=== PATIENT | female | born 1965 | race Caucasian/White ===

== ENCOUNTER 2019-04-29 08:38 | Outpatient (CLI) | payer BC, SELFPAY ==
--- NOTE | 2019-05-07 15:45 | SLEEP_ITS ---
Split Night Sleep Study. DATE OF STUDY: 04/29/2019 REASON FOR THE STUDY: Loud snoring, hypersomnolence. HISTORY: This patient is a 53-year-old female, 65 inches tall, weighing 250 pounds with a body mass index of 41.6. She has a history of very loud snoring that is loud enough that others complain about it. This thing has been going on for several years. She rarely awakens at night with heartburn, belching, or coughing. She does not awaken from sleep, short of breath. There is a family history with her sister being treated for sleep apnea. She indicates that she has taken medication for this, but she does not list which medicines. She occasionally has trouble sleeping with a cold. She does not gasp for breath at night. She does not have witnessed apneas reported to her by others. She frequently sweats excessively at night. She does not notice her heart pounding or beating irregularly at night. She frequently falls asleep during the day, frequently involuntarily, but never while driving. She occasionally has loss of muscle tone with strong emotion and occasionally has daytime difficulties due to excessive sleepiness. She never feels paralyzed on waking or falling asleep. She rarely has vivid dreamlike scenes upon awakening or falling asleep. She is never afraid to go to sleep. She denies nightmares. She rarely remembers her dreams and rarely has racing thoughts. She constantly feels sad and depressed, frequently anxious. She constantly has muscular tension. She rarely notices parts of her body jerking and she rarely kicks at night. She does not have crawly achy feelings in her legs and rarely has leg pain at night. She rarely has morning jaw pain. She does not grind her teeth during sleep. She frequently is bothered by pain during the day. She is not awakened by pain at night. She constantly wakes up feeling stiff in the morning occasionally with sore achy muscles, frequently with pain in the neck and spine. She has fatigue, memory problems, concentration difficulties, tension. She goes to bed at 10:00 p.m., falling asleep quickly, waking 1 to 2 times at night to go to the bathroom. She wakes in the morning at 04:30 a.m. Weekend schedule, she goes to bed between 10:00 p.m. and 12 midnight and wakes whenever she feels like it. So she does get recovery sleep on weekends. She does take naps. A short nap is not refreshing. She is drowsy in the morning for 1 hour or longer. She quit smoking a year ago. She drinks half pot of coffee per day. She drinks 3-4 alcoholic beverages when she goes out. MEDICAL COMORBIDITIES: Hypothyroidism, depression, arthritis, history of gastric bypass, so she cannot take NSAIDs. MEDICATIONS: No medications listed. DESCRIPTION OF THE STUDY: On the [place] Sleepiness Scale, her score is 11, elevated. This was conducted as a split night nocturnal polysomnogram using the [employer] multiple channel system including EOG, EEG, submental EMG, EKG, nasal and oral airflow using thermistors and nasal pressure sensors, chest and abdominal belts, body position data and pulse oximetry. The study was scored using [facility] guidelines. The duration of the 1st portion was 170.9 minutes. Sleep time was 139 minutes. Sleep efficiency was 81.3%. Sleep latency 19.2 minutes. There was no REM. She spent 12.8 minutes awake after sleep onset. Sleep architecture showed 12.6% stage 1 sleep, 87.4% stage 2 sleep, no stage 3 sleep and no stage REM. She was not supine at all during this portion. Sleep was fragmented with frequent shifts between wake stage I and stage II. The apnea-hypopnea index was 16.8, all obstructive events. She had 39 obstructive hypopneas in non-supine, non-REM. The lowest desaturation was 87%. She spent 0.4 minutes below 88%, which was insignificant
== END 2019-04-29 08:39 | disposition home or self-care (01) ==
LOC: ANHCSM 08:40
PROVIDERS: PCP Family Medicine; Visit Provider Physician Assistant
DX: G47.33 Obstructive sleep apnea (adult) (pediatric) (principal); G47.61 Periodic limb movement disorder
CPT/HCPCS: 95811

== ENCOUNTER 2020-01-30 14:23 | Emergency (ER) | payer BC, SELFPAY ==
[2020-01-30 14:33] VITALS: BP 149/102; PULSE 77; TEMP 35.9; O2SAT 98
--- NOTE | 2020-01-30 15:14 | ED.GENADULT ---
HPI - General Adult General Chief complaint: Urogenital-Female Stated complaint: discolored urine Time Seen by Provider: 01/30/20 14:57 Source: patient Mode of arrival: ambulatory Limitations: no limitations History of Present Illness HPI narrative: Patient is a 54-year-old female who presents to emergency department for evaluation of dark urine noticed over the weekend concern for urinary tract infection had mild discomfort in the abdomen over the weekend. Patient on arrival in no distress denying any pain has not negative anger symptoms Related Data Home Medications Medication Instructions Recorded Confirmed buspirone 10 mg tablet 10 mg PO BID 01/19/20 Allergies Allergy/AdvReac Type Severity Reaction Status Date / Time Sulfa (Sulfonamide Allergy Unknown Skin Verified 01/30/20 14:43 Antibiotics) Reaction erythromycin base AdvReac Intermediate NV Verified 01/30/20 14:43 Review of Systems Review of Systems: All systems reviewed & are unremarkable except as noted in HPI and below PMFSH Family History Family History Father Hypertension Acute myocardial infarction Mother Asthma, Onset Age: 50 Social History Social History Smoking status: Never smoker Alcohol intake: current Exam Narrative: Exam Narrative: GENERAL: Well-appearing, obese, and in no acute distress. HEAD: Normocephalic, atraumatic. EYES: PERRLA and EOMI. ENT: Nares clear, no rhinorrhea or epistaxis. Mucous membranes moist. CHEST: Clear to auscultation. No respiratory distress. No wheezes rales or rhonchi HEART: Regular rate and rhythm. No murmur heard. EXTREMITIES: Normal range of motion. No edema. SKIN: Warm, dry, no rash. NEURO: No focal deficits. Alert and oriented x3. Cranial nerves II through XII grossly intact PSYCH: Normal mood and affect. Course Course Emergency Course: Patient in the room in no distress no high risk changes in the blood work or imaging felt appropriate for outpatient reevaluation patient agrees to follow-up as directed provided with reasons to return Vital Signs Vital signs: Vital Signs Temperature 96.7 F L 01/30/20 14:33 Pulse Rate 77 01/30/20 14:33 Blood Pressure 149/102 H 01/30/20 14:33 Pulse Oximetry 98 01/30/20 14:33 Temperature 96.7 F L 01/30/20 14:33 Pulse Rate 77 01/30/20 14:33 Blood Pressure 149/102 H 01/30/20 14:33 Pulse Oximetry 98 01/30/20 14:33 Medical Decision Making MDM Narrative Medical decision making narrative: Patient in the room in no distress aware of case findings treatment plan diagnosis agreeing to follow-up as directed or to return if symptoms worsen or concerns is afebrile nontoxic-appearing no distress felt appropriate for outpatient reevaluation Vital Signs Vital Signs: Vital Signs Temperature 96.7 F L 01/30/20 14:33 Pulse Rate 77 01/30/20 14:33 Blood Pressure 149/102 H 01/30/20 14:33 Pulse Oximetry 98 01/30/20 14:33 Temperature 96.7 F L 01/30/20 14:33 Pulse Rate 77 01/30/20 14:33 Blood Pressure 149/102 H 01/30/20 14:33 Pulse Oximetry 98 01/30/20 14:33 Lab Data Result diagrams: 01/30/20 15:04 01/30/20 15:04 Labs: Lab Results 01/30/20 01/30/20 01/30/20 Range/Units 15:04 15:04 15:05 WBC 4.7 (4.5-10.0) K/mm3 RBC 4.62 (4.2-5.4) M/mm3 Hgb 14.8 (12.0-15.0) g/dL Hct 44.7 (37.0-47.0) % MCV 96.8 (80-100) fl MCH 32.0 (26-34) pg MCHC 33.1 (32-36) g/dl RDW 15.2 H (11.5-14.5) % Plt Count 332 (150-375) k/mm3 MPV 10.5 H (7.4-10.4) fl Immature Gran % (Auto) 0.9 H (0-0.5) % Neut % (Auto) 76.9 H (45.5-73.1) % Lymph % (Auto) 13.0 L (18.3-44.2) % [place] % (Auto) 7.5 (2.6-8.5) % Eos % (Auto) 1.3 (0-4.4) % Baso % (Auto) 0.4 (0.2-1.2) % Lymph # (Auto) 0.61 L (0.9-3.2) K/mm
[2020-01-30 15:37] LABS: Basophils Percent Auto 0.4 % (0.2-1.2); Eosinophils Absolute Auto 0.1 K/mm3 (0-0.3); Eosinophils Percent Auto 1.3 % (0-4.4); Hematocrit 44.7 % (37.0-47.0); Hemoglobin 14.8 g/dL (12.0-15.0); Immature Granulocyte Absolute 0.04 K/mm3 (0.00-0.031); Immature Granulocyte Percent A 0.9 % (0-0.5); Lymphocytes Absolute Auto 0.61 K/mm3 (0.9-3.2); Mean Corpuscular HGB Conc 33.1 g/dl (32-36); Mean Corpuscular Volume 96.8 fl (80-100); Mean Platelet Volume 10.5 fl (7.4-10.4); Monocytes Absolute Auto 0.4 K/mm3 (0.1-0.6); Monocytes Percent Auto 7.5 % (2.6-8.5); Neutrophils Absolute Auto 3.6 K/mm3 (1.3-6.7); Neutrophils Percent Auto 76.9 % (45.5-73.1); Platelet Count Result 332 k/mm3 (150-375); Red Blood Count 4.62 M/mm3 (4.2-5.4); Red Cell Distribution Width 15.2 % (11.5-14.5); White Blood Count 4.7 K/mm3 (4.5-10.0)
[2020-01-30 15:44] LABS: Add Urine Microscopic? YES; Appearance Urine Clear (Clear); Bacteria Urine Trace /hpf; Bilirubin Urine Negative (Negative); Blood Urine Negative (Negative); Color Urine Amber (Yellow); Glucose Urine UA Negative (Negative); Ketones Urine Negative (Negative); Leukocyte Esterase Ur Negative LEU/UL (Negative); Mucus Urine Rare /lpf; Nitrate Urine Negative (Negative); Protein Urine Negative (Negative); RBC Urine 0-2 /hpf (0-2); Specific Grav Ur 1.017 (1.001-1.035); Squamous Epithelial Cell Urine Occasional /hpf (Few); WBC Urine 0-3 /hpf
[2020-01-30 15:54] LABS: Anion Gap 8 mmol/L (8-16); Blood Urea Nitrogen 14 mg/dL (7-17); Calcium 9.4 mg/dL (8.4-10.2); Carbon Dioxide 29 mmol/L (22-30); Chloride 101 mmol/L (98-107); Estimated CRCL calculation 79 ml/min; Estimated Glomerular Filt Rate > 60; Glucose 117 mg/dL (65-105); Potassium 3.9 mmol/L (3.4-5.0); Sodium 138 mmol/L (137-145)
== END 2020-01-30 16:25 | disposition home or self-care (01) ==
PROVIDERS: Emergency Medicine Emergency Medical Services; Emergency Provider Emergency Medicine; PCP Family Medicine
DX: R82.998 Other abnormal findings in urine (principal)
CPT/HCPCS: 36415; 80048; 81001; 85025; 99283

== ENCOUNTER → 2020-02-03 07:18 | Outpatient (CLI) | payer BC, SELFPAY ==
--- NOTE | ~2020-02-03 | XR_ITS ---
XR ankle LT min 3V 02/03/2020 08:06 Indication: Left ankle pain Procedure: 4 views left ankle Comparison: No prior studies for comparison. Findings: There is anatomic alignment. Ankle mortise intact. No abnormality of the talar dome. There is a degenerative calcaneal enthesophyte at the plantar surface. No acute fracture or traumatic malal ignment. No foreign bodies. There is pes planus. Impression: 1: No acute bone or joint abnormality. Reviewed, dictated and finalized at location B. AL CYTOLOGIST Impression: 1: No acute bone or joint abnormality.
--- NOTE | ~2020-02-03 | XR_ITS ---
EXAMINATION: XR hand BI arthritis min 3V DATE: 02/03/2020 08:06 INDICATION: Pain in the joints of the hands, right worse than left. TECHNIQUE: 4 views of right hand and 4 views of left hand on a total of 7 radiographs were obtained. COMPARISON: None. FINDINGS: RIGHT HAND: There is radial subluxation of second and third distal phalanges with respect to the midd le phalanges. No fracture. There is mild osteoarthritis of triscaphe joint, severe osteoarthritis of first carpometacarpal joint, and mild osteoarthritis of first-third metacarpophalangeal joints. There is severe osteoarthritis of first interphalangeal joint, second and third proximal and distal interp halangeal joints, and fifth proximal interphalangeal joint. There is moderate osteoarthritis of fourt h distal interphalangeal joint and mild osteoarthritis of fourth proximal interphalangeal joint of fi fth distal interphalangeal joint. LEFT HAND: Bone alignment is normal. No fracture. There is mild osteoarthritis of triscaphe joint, se maria esther osteoarthritis of first carpometacarpal joint, moderate osteoarthritis of first metacarpophalang eal joint, and mild osteoarthritis of fifth metacarpophalangeal joint. There is severe osteoarthritis of first interphalangeal joint, second proximal and distal interphalangeal joints, third and fourth distal interphalangeal joints, and fifth proximal and distal interphalangeal joints. There is mild os teoarthritis of third and fourth proximal interphalangeal joints. IMPRESSION: 1. Polyarticular osteoarthritis. Reviewed, dictated and finalized at location A. YTICAL LAB ANALYST
== END ==
PROVIDERS: PCP Family Medicine; Visit Provider Family Medicine
DX: M25.579 Pain in unspecified ankle and joints of unspecified foot (principal); M19.041 Primary osteoarthritis, right hand; M19.042 Primary osteoarthritis, left hand
CPT/HCPCS: 73130; 73610

== ENCOUNTER → 2020-02-06 07:25 | Outpatient (CLI) | payer BC, SELFPAY ==
--- NOTE | ~2020-02-06 | US_ITS ---
EXAMINATION: US abdomen limited EXAM DATE: 02/06/2020 08:13 INDICATION: R74.8 - Abnormal levels of other serum enzymes . TECHNIQUE: Multiple grayscale and Doppler images of the abdomen right upper quadrant were obtained (b y a technologist who performed the scan) and subsequently reviewed. There is no prior study for ramírez morris. FINDINGS: The pancreatic head and body are normal in appearance. The pancreatic tail is not visualized. The l iver has normal echogenicity and contour. There are no focal liver lesions identified. There is no evidence of intrahepatic biliary duct dilation. Portal venous flow was seen in the hepatopedal, nor mal direction and has normal Doppler waveform. No right-sided hydronephrosis. Common bile duct measures 7 mm, which is mildly dilated. Gallbladder is contracted with wall echo sha brenda sign, Stone filled gallbladder. There is no evidence of gallbladder wall thickening or pericholec ystic fluid. Technologist performing exam reports patient did not demonstrate sonographic Andrade's si gn. Please note that this sign is less reliable in patients who have received pain medication. IMPRESSION: 1. Cholelithiasis. 2. Mild common bile duct dilation without intrahepatic biliary duct dilation. If patient has elevate d bilirubin level then consider MRCP to evaluate possibility of choledocholithiasis. Reviewed, dictated and finalized at location A. OFFICER IMPRESSION: 1. Cholelithiasis. 2. Mild common bile duct dilation without intrahepatic biliary duct dilation. If patient has elevated bilirubin level then consider MRCP to evaluate possibil ity of choledocholithiasis.
== END ==
PROVIDERS: PCP Family Medicine; Visit Provider Family Medicine
DX: R74.8 Abnormal levels of other serum enzymes (principal); K80.20 Calculus of gallbladder without cholecystitis without obstruction
CPT/HCPCS: 76705

== ENCOUNTER → 2020-02-18 09:15 | Outpatient (CLI) | payer BC, SELFPAY ==
--- NOTE | ~2020-02-18 | MR_ITS ---
EXAMINATION: MR MRCP wo/w con/w 3D wo ind DATE: 02/18/2020 10:50 INDICATION: Generalized abdominal pain. Jaundice. TECHNIQUE: Magnetic resonance imaging (MRI) of the abdomen was performed without and with 20 mL Multi Juliette intravenous contrast. Sequences included coronal T2-weighted FS FSE, coronal T2-weighted FSE, a xial T1-weighted LAVA, coronal FS FIESTA, axial dual-echo T1-weighted SPGR, coronal lava-FLEX, sagitt al T2-weighted FSE, axial T2-weighted FSE, and axial DWI. Thick-slab T2-weighted FSE images were obta ined for magnetic resonance cholangiopancreatography (MRCP). Maximum intensity projection 3-D reconst ructions of the volumetric data were created by the technologist. Postcontrast sequences included cor onal LAVA-flex and time course of axial T1-weighted LAVA. COMPARISON: Ultrasound abdomen 02/06/20 FINDINGS: ABDOMEN MRI: There is moderate intrahepatic biliary duct dilatation. There are gallstones in the cyst ic duct and gallbladder, which is normal in size. There is an 11 mm cyst in the spleen. The pancreas and right adrenal gland are normal. There is a 3.9 cm mass in left adrenal gland containing microscop ic fat, consistent with an adenoma. The kidneys are normal. There are no dilated loops of bowel. Ther e are no pathologically enlarged lymph nodes. There is no free intraperitoneal fluid. ABDOMEN MRCP: The proximal common duct is dilated. There is a 16 mm stone in the common duct at its j unction with the cystic duct. The distal common duct is normal in caliber. IMPRESSION: 1. Cholelithiasis and choledocholithiasis with moderate intrahepatic biliary duct dilatation. 2. 3.9 cm left adrenal adenoma. Reviewed, dictated and finalized at location A. IRATORY SUPPORT TECHNICIAN IMPRESSION: 1. Cholelithiasis and choledocholithiasis with moderate intrahepatic biliary du ct dilatation. 2. 3.9 cm left adrenal adenoma.
[2020-02-18 10:02] LABS: Estimated Glomerular Filt Rate > 60
== END ==
PROVIDERS: PCP Family Medicine; Visit Provider Surgery
DX: K80.50 Calculus of bile duct without cholangitis or cholecystitis without obstruction (principal); D35.02 Benign neoplasm of left adrenal gland
CPT/HCPCS: 74183; 76376; A9577

== ENCOUNTER 2020-03-02 13:10 | Outpatient (CLI) | payer BC, SELFPAY ==
--- NOTE | 2020-03-02 13:12 | ECG_ITS ---
Measurements Intervals [place] Rate: 59 P: 7 IA: 166 QRS: -43 QRSD: 122 T: 61 QT: 449 QTc: 446 Interpretive Statements SINUS BRADYCARDIA LEFT AXIS DEVIATION LEFT VENTRICULAR HYPERTROPHY AND ST-T CHANGE POOR R WAVE PROGRESSION, ANTERIOR LEADS MINIMAL Q WAVES- HIGH LATERAL LEADS BORDERLINE ECG Electronically Signed On 03-02-2020 13:45:12 RECENTERER by Giancarlo Marrufo D.O.
[2020-03-02 13:45] LABS: Basophils Percent Auto 0.6 % (0.2-1.2); Eosinophils Absolute Auto 0.2 K/mm3 (0-0.3); Eosinophils Percent Auto 3.1 % (0-4.4); Hematocrit 39.3 % (37.0-47.0); Hemoglobin 13.4 g/dL (12.0-15.0); Immature Granulocyte Percent A 1.6 % (0-0.5); Lymphocytes Percent Auto 15.7 % (18.3-44.2); Mean Corpuscular HGB Conc 34.1 g/dl (32-36); Mean Corpuscular Hemoglobin 32.7 pg (26-34); Mean Corpuscular Volume 95.9 fl (80-100); Mean Platelet Volume 10.7 fl (7.4-10.4); Monocytes Absolute Auto 0.5 K/mm3 (0.1-0.6); Monocytes Percent Auto 7.7 % (2.6-8.5); Neutrophils Absolute Auto 4.5 K/mm3 (1.3-6.7); Neutrophils Percent Auto 71.3 % (45.5-73.1); Platelet Count Result 391 k/mm3 (150-375); White Blood Count 6.4 K/mm3 (4.5-10.0)
[2020-03-02 14:20] LABS: Alanine Aminotransferase 339 U/L (4-35); Albumin Level 3.9 g/dL (3.5-5.1); Alkaline Phosphatase 1437 U/L (38-126); Amylase 59 U/L (30-110); Anion Gap 11 mmol/L (8-16); Aspartate Amino Transferase 321 U/L (14-36); Bilirubin Direct 5.5 mg/dL (0-0.3); Bilirubin,Total 9.6 mg/dL (0.2-1.3); Blood Urea Nitrogen 16 mg/dL (7-17); Calcium 9.6 mg/dL (8.4-10.2); Carbon Dioxide 28 mmol/L (22-30); Chloride 102 mmol/L (98-107); Estimated Glomerular Filt Rate > 60; Glucose 98 mg/dL (65-105); Lipase 28 U/L (23-300); Potassium 3.8 mmol/L (3.4-5.0); Sodium 141 mmol/L (137-145)
== END 2020-03-02 13:11 | disposition home or self-care (01) ==
PROVIDERS: PCP Family Medicine; Visit Provider Surgery
DX: Z01.818 Encounter for other preprocedural examination (principal); K81.1 Chronic cholecystitis; R94.31 Abnormal electrocardiogram [ECG] [EKG]
CPT/HCPCS: 36415; 80053; 82150; 82248; 83690; 85025; 86850; 86900; 86901; 93005

== ENCOUNTER 2020-03-05 00:48 | Outpatient (CLI) | payer BC, SELFPAY ==
[2020-03-05 18:38] LABS: SARS-CoV-2 RNA PCR Negative
== END 2020-03-05 00:49 | disposition home or self-care (01) ==
LOC: ANHCOVIDDT 00:48
PROVIDERS: Anesthesiology; PCP Family Medicine; Visit Provider Surgery
DX: Z01.812 Encounter for preprocedural laboratory examination (principal); Z20.822 Contact with and (suspected) exposure to COVID-19
CPT/HCPCS: C9803; U0003

== ENCOUNTER 2020-03-09 15:37 | Observation (INO) | payer BC, SELFPAY ==
[2020-03-01 12:54] VITALS: BMI 43.2
[2020-03-08] VITALS (12 sets, daily range): BP systolic 120–152; BP diastolic 54–89; PULSE 67–79; RESP 12–21; TEMP 36.1–37.3; O2SAT 92–100; BMI 41.4
--- NOTE | 2020-03-08 10:16 | SUR.PREOP ---
PT STATES LMP OVER 1 YEAR AGO DUE TO MENOPAUSE
[2020-03-08] MEDS: ACETAMINOPHEN 500 MG TABLET 1000 MG PO (10:28)
--- NOTE | 2020-03-08 10:57 | P.PNAN_ITS ---
Anes - Initial Pre Proc Eval Procedure: Operation Date: 03/08/20 12:00 Proposed Procedures p Open Cholecystectomy With Common Bile Duct Exploration, With T-Tube Cholangiogram - Zeus Villalta MD Date/Time: 03/08/20 10:57 Surgeon: Zeus Villalta MD Pre Op Diagnosis: Chronic Cholecystitis with Cholelithiasis Patient Data Age: 54 Gender: F Height: 5 ft 5 in Weight: 112.9 kg Last Vital Signs Temp 37.3 C 03/08/20 10:30 Pulse 73 03/08/20 10:30 Resp 20 03/08/20 10:30 BP 152/89 H 03/08/20 10:30 Pulse Ox 99 03/08/20 10:30 Allergies Allergy/AdvReac Type Severity Reaction Status Date / Time Sulfa (Sulfonamide Allergy Severe Swelling Verified 03/08/20 10:02 Antibiotics) erythromycin base AdvReac Intermediate Abdominal Verified 03/08/20 10:02 Pain Home Medications Medication Instructions Recorded Confirmed Type levothyroxine 150 mcg tablet 150 mcg PO DAILY #90 tablet 05/21/19 03/08/20 Rx cholecalciferol (vitamin D3) 1,250 1,250 mcg PO WEEKLY #14 tablet 08/07/19 03/08/20 Rx mcg (50,000 unit) tablet diclofenac sodium 1 % topical gel 2 gm TOPICAL QID #100 gm 08/11/19 03/08/20 Rx buspirone 10 mg tablet 10 mg PO BID 01/19/20 03/08/20 History lisinopril 10 1 tablet PO DAILY #90 tablet 01/19/20 03/08/20 Rx mg-hydrochlorothiazide 12.5 mg tablet venlafaxine 75 mg tablet 75 mg PO TID #90 tablet 01/19/20 03/08/20 Rx multivit with min-folic acid 1 tablet PO DAILY 03/01/20 03/08/20 History [Adult One Daily Multivitamin] Patient hx anesthesia problems: none Family hx anesthesia problems: none PMFSH Past Medical History Medical History (Updated 03/08/20 @ 10:58 by Maxime Chaudhari MD) CAD (coronary artery disease) Depression High cholesterol HTN (hypertension) RON (obstructive sleep apnea) Thyroid disease Surgical History Surgical History Gastric bypass status for obesity History of thyroid surgery Family History Family History Father Hypertension Acute myocardial infarction Heart attack Mother Asthma, Onset Age: 50 History of blood clots Social History Social History (Updated 03/08/20 @ 10:58 by Maxime Chaudhari MD) Smoking status: Former smoker Alcohol intake: current Alcohol use details: occassional Substance use: never Living arrangements: with family 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 Questions were solicited and answers provided to the satisfaction of the patient/fam
[2020-03-08] MEDS: LACTATED RINGERS 1,000 ML 30 ML IV CONT ×2 (11:02→17:12)
--- NOTE | 2020-03-08 12:07 | WPDHPUPDATE1 ---
History and Physical Update Update Date/Time: 03/08/20 12:07 History and Physical has been reviewed, including an updated exam of the patient. There are changes in the patient's condition. The patient had a MRCP that showed a CBD stone. An attempt was made by Dr. Balderrama at [facility] to get to her ampulla for an ercp and this was not able to be done because of her Gastric bypass surgery. So we now plan an open Cholecystectomy with a common bile duct exploration, removal of a CBD stone with placement of a T tube. Risks, benefits, and alternatives have been discussed and questions answered. Patient agrees to proceed with procedure.
--- NOTE | 2020-03-08 12:08 | SUR.PREOP ---
SPOKE TO DR SANTIZO. ANCEF 2GM OKAYED. GIVE PT TORADOL 15MG IV
[2020-03-08] MEDS: KETOROLAC 15 MG/ML VIAL (*BKC) IV PUSH (12:13)
[2020-03-08] MEDS: ceFAZolin 2 GM/D5W 50 ML 2 GM/50 ML BAG IVPB ×2 (12:22→21:38)
[2020-03-08] MEDS: ceFAZolin SODIUM 1 GM VIAL 2 GM IV PUSH (16:24)
--- NOTE | 2020-03-08 17:29 | PM.PROC ---
Procedure Note - Detailed Date of procedure: 03/08/20 Pre-op diagnosis: Chronic Cholecystitis with Cholelithiasis 1. Choledocholithiasis 2. Chronic cholecystitis with cholelithiasis Post-op diagnosis: other (1. Chronically scarred and inflamed gallbladder full of stones 2. Choledocholithiasis) Procedure performed: 1. Common duct exploration with placement of T-tube and T-tube cholangiogram 2. Open cholecystectomy Description of procedure: The patient was brought to the operating room and after induction of adequate general endotracheal anesthesia by David anesthesia, we carefully positioned the patient with the right arm tucked. The entire upper abdomen and lower chest were prepped with chlorhexidine. The patient received 3 g of Ancef preop. Time-out was performed and then we began the open procedure by making a long transverse subcostal incision 2 cm below the costal margin on the right. Incision was made and carried down to the anterior rectus sheath and then the anterior rectus sheath incised with Bovie cautery. Following this we carefully divided the rectus muscle overlying the posterior rectus sheath. Following this the posterior rectus sheath and peritoneum were tented up in the center of the incision and the peritoneum entered without difficulty. We then opened the peritoneum the length of the incision. Incision carried out into the lateral abdominal wall muscles only a small degree. We immediately encountered some omentum and the transverse colon. Careful inspection with retraction revealed that omentum and colon completely covered the gallbladder in its usual placed just under the right lobe of the liver. I then with careful retraction began meticulous dissection dissecting the omentum and colon off the gallbladder with both finger fracture method and blunt and sharp dissection until we dissected down the entire length of the gallbladder. It was very difficult to obtain a plane in this area but it appeared that we did. Several holes were made in the gallbladder especially on the posterior lateral side and stones begin coming out of this. These were gradually removed as they came out. We grasped the gallbladder in order to be able to continue dissecting and carefully with Kitner dissectors and the right angle forceps I dissected under direct vision down to what appeared to be the wide cystic duct/common bile duct junction. We could not easily see the cystic artery coming up on the gallbladder in this area but we found what appeared to be the anterior surface of the common bile duct and I aspirated this with a 22 gauge needle on a 10 cc syringe and did get some bile. Two stay sutures of 4-0 Vicryl were then placed on either side of this and a cut was made between them with an 11 blade knife. Initially we did not even get into any biliary duct or the gallbladder. I made this a little bit deeper and we could see a large stone in the area and were then able to sweep this up in out through the opening. It was 16 X 10 mm in size. It appeared that we were right on top of the wide cystic duct at this point. Therefore, we dissected out a little more mid medially and I placed another 4-0 Vicryl stay suture further over on what appeared to be the common duct. I then again aspirated and found some bile and so we opened what appeared to be the area of the common bile duct just medial to its junction with the cystic duct. Another large stone was found right at this area and it was removed. (15 X 11 mm) Several small ones and another 11 x 10 mm stone was extracted from this opening also. Through this opening then I could place a Mallika catheter, we used a #6 Mallika catheter with a balloon and this was able to be passed into the duodenum. I then blew up the balloon pulled it back until it hit the ampulla of Vater then let the balloon down mcc pulled it back the rest way X 3 and there were no further stones found distally in the common bile duct. Followin
[2020-03-08] MEDS: LACTATED RINGERS 1,000 ML 100 ML IV CONT (18:53)
--- NOTE | 2020-03-08 19:21 | ADMGEN ---
This patient, Jess Saez, was admitted to 2 Medical Room 250-01. Patient/family oriented to hospital policies and general routines including ID bracelet, bed and alarms, visiting hours, pain management, procedures, bathroom and other care routines, personal items, smoking policy, room service/diet, and visiting hours. Information on how to activate the Rapid Response Team has been discussed. Patient/Family are encouraged to report perceived risks to care and to ask questions if they do not understand what they are told or what they should do.
[2020-03-08] MEDS: MORPHINE SULFATE PCA (*CRX) 30 MG/30 ML SYR IV CONT (19:55)
[2020-03-08] MEDS: SENNA/DOCUSATE SODIUM TABLET 2 TAB PO (21:31)
[2020-03-08] MEDS: busPIRone HCL 10 MG TABLET PO (21:31)
[2020-03-09] VITALS (7 sets, daily range): BP systolic 144–163; BP diastolic 64–82; PULSE 73–80; RESP 16–21; TEMP 36.1–36.8; O2SAT 98–100
--- NOTE | ~2020-03-09 | XR_ITS ---
EXAMINATION: XR catheter cholangiogram DATE: 03/08/2020 17:05 INDICATION: Cholelithiasis. TECHNIQUE: 174 fluoroscopic images of the right upper quadrant were obtained during intraoperative ch olangiography performed by the surgeon. I was not present in the operating room. Fluoroscopy exposure time was 44 seconds. COMPARISON: MRCP 02/18/2020 FINDINGS: There is a T-tube in expected position. Contrast injection of the T-tube demonstrates opaci fication of the biliary tree and duodenum and collection of contrast in the gallbladder fossa. Initia l images demonstrate a drain in the bladder fossa. IMPRESSION: 1. T-tube in expected position with leakage of contrast into the gallbladder fossa. Reviewed, dictated and finalized at location A. I MIXER OPERATOR IMPRESSION: 1. T-tube in expected position with leakage of contrast into the gallbladder fo ssa.
[2020-03-09] MEDS: ACETAMINOPHEN 500 MG TABLET PO (04:06)
[2020-03-09] MEDS: LACTATED RINGERS 1,000 ML 100 ML IV CONT (05:26)
[2020-03-09] MEDS: ceFAZolin 2 GM/D5W 50 ML 2 GM/50 ML BAG IVPB ×2 (05:26→14:02)
[2020-03-09] MEDS: LEVOTHYROXINE SODIUM 150 MCG TABLET PO (05:32)
[2020-03-09 05:39] LABS: Hematocrit 33.1 % (37.0-47.0); Hemoglobin 10.7 g/dL (12.0-15.0); Mean Corpuscular HGB Conc 32.3 g/dl (32-36); Mean Corpuscular Hemoglobin 33.1 pg (26-34); Mean Corpuscular Volume 102.5 fl (80-100); Mean Platelet Volume 10.8 fl (7.4-10.4); Platelet Count Result 411 k/mm3 (150-375); Red Blood Count 3.23 M/mm3 (4.2-5.4); Red Cell Distribution Width 16.6 % (11.5-14.5); White Blood Count 14.7 K/mm3 (4.5-10.0)
[2020-03-09 05:57] LABS: Alanine Aminotransferase 142 U/L (4-35); Albumin Level 3.3 g/dL (3.5-5.1); Alkaline Phosphatase 1165 U/L (38-126); Anion Gap 7 mmol/L (8-16); Aspartate Amino Transferase 125 U/L (14-36); Bilirubin,Total 3.4 mg/dL (0.2-1.3); Blood Urea Nitrogen 17 mg/dL (7-17); Calcium 9.1 mg/dL (8.4-10.2); Carbon Dioxide 31 mmol/L (22-30); Chloride 99 mmol/L (98-107); Estimated CRCL calculation 78 ml/min; Estimated Glomerular Filt Rate > 60; Glucose 137 mg/dL (65-105); Potassium 3.9 mmol/L (3.4-5.0); Sodium 137 mmol/L (137-145)
--- NOTE | 2020-03-09 07:50 | WPDANESPN ---
Anes - Prog Note Post-Op Date/Time: 03/09/20 07:50 Cardiovascular status: normal Respiratory status: normal Airway patency: baseline Mental status: baseline Post-Op hydration status: normal Vital Signs: Last Vital Signs Temp 36.4 C L 03/09/20 06:00 Pulse 80 03/09/20 06:00 Resp 21 H 03/09/20 06:00 BP 147/76 H 03/09/20 06:00 Pulse Ox 100 03/09/20 06:00 Pain Score (VAS): 04/14 I/O: Intake & Output 03/08/20 03/08/20 03/09/20 15:59 23:59 07:59 Intake Total 50 250 1520 Output Total 5 970 Balance 50 245 550 Laboratory Tests 03/09/20 05:11 03/09/20 05:11 03/09/20 03/09/20 05:11 05:11 WBC 14.7 H RBC 3.23 L Hgb 10.7 L Hct 33.1 L MCV 102.5 H D MCH 33.1 MCHC 32.3 RDW 16.6 H Plt Count 411 H MPV 10.8 H Sodium 137 Potassium 3.9 Chloride 99 Carbon Dioxide 31 H Anion Gap 7 L BUN 17 Creatinine 0.90 Estim Creat Clear Calc 78 Estimated GFR > 60 Glucose 137 H Calcium 9.1 Total Bilirubin 3.4 H AST 125 H ALT 142 H Alkaline Phosphatase 1165 H Total Protein 7.0 Albumin 3.3 L Post-procedural complaints: none Patient Feedback: Patient satisfied with anesthetic care.
[2020-03-09] MEDS: busPIRone HCL 10 MG TABLET PO (08:31)
[2020-03-09] MEDS: hydroCHLOROthiazide 12.5 MG CAPSULE PO (08:31)
[2020-03-09] MEDS: lisinopriL 10 MG TABLET PO (08:31)
[2020-03-09] MEDS: ENOXAPARIN 40 MG/0.4 ML SYRINGE SUB-Q (08:32)
[2020-03-09] MEDS: HYDROcodone/acetaminophen (*CRX) 5-325 MG TABLET 1 TAB PO ×2 (09:59→19:50)
--- NOTE | 2020-03-09 10:44 | PM.PNGS ---
Progress Note: A&P Assessment and Plan (1) CCC (chronic calculous cholecystitis): Code(s): K80.10 - Calculus of gallbladder with chronic cholecystitis without obstruction Status: Acute Assessment and Plan: POD#1 open cholecystectomy with CBD exploration and t-tube placement with IOC through t-tube. Patient doing well and pain is well-controlled. Tolerating activity and her diet. May change post-op dressing tomorrow prior to discharge. Will advance to full liquids for lunch. I ordered a senior software quality engineer consult for education on a low fat diet, which she will be discharged home on. Continue to monitor ENRIQUE drain and t-tube output. Encouraged increased activity and sitting in the chair with meals, ambulating the halls. Encouraged IS use. Pathology pending. Patient may be able to discharge tomorrow if she continues to improve. (2) Common bile duct stone: Code(s): K80.50 - Calculus of bile duct without cholangitis or cholecystitis without obstruction Status: Acute (3) Jaundice: Code(s): R17 - Unspecified jaundice Status: Acute Assessment and Plan: LFTs trending down with total bilirubin down to 3.4 today. (4) Essential (primary) hypertension: Code(s): I10 - Essential (primary) hypertension Status: Acute Assessment and Plan: BP stable. Continue home medications. (5) Morbid obesity: Code(s): E66.01 - Morbid (severe) obesity due to excess calories Status: Acute Additional Plan Discussed the patient's plan of care with Dr. Villalta. Subjective Subjective Date/Time Seen: 03/09/20 08:44 Post Op day: 1 (Open cholecystectomy with CBD exploration and t-tube placement with cholangiogram through t-tube) Patient reports: no new complaints Interval history: Patient seen this morning. Had clear liquids for breakfast and is tolerating this well. She denies any nausea, vomiting, or bloating. Denies flatus, but is belching a lot. Reports her abdominal pain is well controlled and has not required any narcotics. Her main complaint of pain is her low back pain, chronic pain, from sleeping in the hospital bed. She had a headache earlier this morning that has subsided. No other complaints at this time. Review of Systems Review of Systems: All systems reviewed & are unremarkable except as noted in HPI and below Constitutional: Constitutional: Reports as per HPI, Reports no additional constitutional complaints, Denies chills and Denies fever(s) Cardiovascular: Cardiovascular: Reports no additional cardiovascular complaints, Denies chest pain, Denies leg edema and Denies dyspnea Respiratory: Respiratory: Reports no additional respiratory complaints, Denies cough and Denies dyspnea Gastrointestinal: Gastrointestinal: Reports as per HPI and Reports no additional gastrointestinal complaints Neurologic: Reports system reviewed and no additional complaints, except as documented, Denies Abnormal speech present, Denies confusion and Denies focal weakness Psychiatric: Psychiatric: Denies confusion Exam Const: General: comfortable, no acute distress, alert and awake Orientation/consciousness: patient oriented x3 Resp: Effort & Inspection: normal respiratory effort Auscultation: clear to auscultation bilaterally Cardio: Rate: regular rate Rhythm: regular rhythm GI: Inspection: non-distended, incision (RUQ abominal dressing clean and dry) and obesity GI Palp: Yes Soft to palpation, Yes Tenderness to palpation present (GI) (incisional), No Guarding due to palpation present (GI) and No Rebound tenderness present Auscultation: normal bowel sounds Rectal Exam: deferred Other: T-tube with bilious output. Right-sided ENRIQUE drain with serosanguineous output. Skin: General skin exam: normal color Rashes: no rashes Neuro: General: patient oriented x3, moves all extremities, no focal motor deficits and No confusion Cranial nerves: Yes CN's II-XII intact bilaterally Speech: normal speech and No Abn
--- NOTE | 2020-03-09 11:05 | PCDIET ---
Nutrition Consult for low fat diet. See Nutritional Teaching Intervention. Thank you for the consult.
[2020-03-09] MEDS: SENNA/DOCUSATE SODIUM TABLET 2 TAB PO (19:51)
[2020-03-10 04:00] VITALS: BP 163/79; PULSE 83; RESP 20; TEMP 36.2; O2SAT 95
[2020-03-10] MEDS: LEVOTHYROXINE SODIUM 150 MCG TABLET PO (06:04)
[2020-03-10 06:18] LABS: Basophils Percent Auto 0.3 % (0.2-1.2); Eosinophils Absolute Auto 0.1 K/mm3 (0-0.3); Eosinophils Percent Auto 0.7 % (0-4.4); Hematocrit 33.3 % (37.0-47.0); Hemoglobin 10.9 g/dL (12.0-15.0); Immature Granulocyte Absolute 0.16 K/mm3 (0.00-0.031); Immature Granulocyte Percent A 1.2 % (0-0.5); Lymphocytes Absolute Auto 1.93 K/mm3 (0.9-3.2); Lymphocytes Percent Auto 14.3 % (18.3-44.2); Mean Corpuscular HGB Conc 32.7 g/dl (32-36); Mean Corpuscular Hemoglobin 33.2 pg (26-34); Mean Corpuscular Volume 101.5 fl (80-100); Mean Platelet Volume 10.9 fl (7.4-10.4); Monocytes Percent Auto 7.5 % (2.6-8.5); Neutrophils Absolute Auto 10.2 K/mm3 (1.3-6.7); Platelet Count Result 490 k/mm3 (150-375); Red Blood Count 3.28 M/mm3 (4.2-5.4); Red Cell Distribution Width 15.9 % (11.5-14.5); White Blood Count 13.5 K/mm3 (4.5-10.0)
[2020-03-10 06:29] LABS: Alanine Aminotransferase 91 U/L (4-35); Albumin Level 3.6 g/dL (3.5-5.1); Alkaline Phosphatase 961 U/L (38-126); Anion Gap 4 mmol/L (8-16); Aspartate Amino Transferase 63 U/L (14-36); Bilirubin,Total 2.6 mg/dL (0.2-1.3); Blood Urea Nitrogen 12 mg/dL (7-17); Calcium 9.3 mg/dL (8.4-10.2); Carbon Dioxide 37 mmol/L (22-30); Chloride 97 mmol/L (98-107); Estimated CRCL calculation 98 ml/min; Estimated Glomerular Filt Rate > 60; Glucose 109 mg/dL (65-105); Potassium 3.7 mmol/L (3.4-5.0); Sodium 138 mmol/L (137-145)
[2020-03-10] MEDS: lisinopriL 10 MG TABLET PO (08:04)
[2020-03-10] MEDS: busPIRone HCL 10 MG TABLET PO (08:04)
[2020-03-10] MEDS: hydroCHLOROthiazide 12.5 MG CAPSULE PO (08:05)
[2020-03-10] MEDS: ENOXAPARIN 40 MG/0.4 ML SYRINGE SUB-Q (08:05)
[2020-03-10 08:12] VITALS: RESP 20; O2SAT 96
--- NOTE | 2020-03-10 08:52 | PM.DS ---
DS: Admitting Diagnosis Admitting Diagnosis Admitting Diagnosis: Chronic calculous cholecystitis Choledocholithiasis Transaminitis, Jaundice Morbid obesity s/p Gastric Bypass GERD Hypertension DS: Discharge Diagnosis Discharge Diagnosis (1) CCC (chronic calculous cholecystitis): Code(s): K80.10 - Calculus of gallbladder with chronic cholecystitis without obstruction Status: Acute Assessment and Plan: 03/08/19 Open cholecystectomy with CBD exploration and placement of T-tube with cholangiogram through T-tube by Dr. Villalta (2) Common bile duct stone: Code(s): K80.50 - Calculus of bile duct without cholangitis or cholecystitis without obstruction Status: Acute DS: Summary Hospital Course Reason for hospitalization: Ms Saez is a 54 year old female that was found to have bilirubinemia on labs done in the ER in January 2020 on evaluation of dark urine and abdominal pain. Her total bilirubin was 2.7 and had then followed up with her PCP. An abdominal ultrasound was done on 02/06/2020 that showed cholelithiasis, mild common bile duct dilation without intrahepatic biliary duct dilation. The patient was then referred to our service and was seen by Dr. Villalta in the office on 02/11/20 at the request of Dr Calvert. After seeing Dr. Villalta, she was tentatively planned for a laparoscopic cholecystectomy, possible open, with IOC, and also ordered to get a pre-operative MRCP due to the previously mentioned issues. The MRCP showed cholelithiasis and choledocholithiasis with moderate intrahepatic biliary duct dilatation. Therefore, she was referred to Dr. Balderrama at [facility] who attempted an ERCP on 02/25/20 but was unable to reach the major papilla due to her previous gastric bypass. The decision was then made to proceed with open cholecystectomy with CBD exploration on 03/08/19. Patient had gastric bypass about 12 years ago at [facility]. Hospital Course: The patient was admitted following the above mentioned surgery on 03/08/19. Intra-operative findings showed a chronically scarred and inflamed gallbladder with cholelithiasis and choledocholithiasis. During surgery, the patient had a significant amount of scarring and adhesions around the gallbladder. A T-tube was placed and IOC done through the t-tube which showed no filling defects or CBD stones. She tolerated surgery well and was transferred to the medical floor. Following surgery, labs were monitored, she showed a slight, expected, decrease in her hemoglobin initially after surgery. H/H was repeated today and remained stable. LFTs have trended down since surgery with total bilirubin today at 2.6. Jaundice improving. Her other labs were unremarkable. Her vital signs have remained stable and she was restarted on her home medications post-operatively. T-tube and ENRIQUE drain were monitored following surgery with no issues. She will be sent home with these two drains and I educated her today on the care at home. Dr. Villalta also looked at her incision today and reportedly had no concerns. He then placed a dressing and she will leave this in place until seen in the office next week unless there is drainage. No other acute issues during her hospitalization. I discussed discharge instructions with the patient at length and answered all her questions. I will give a dose of milk of magnesia this morning to help her move her bowels postoperatively. After discussing the case with Dr. Villalta, the patient is stable for discharge. Status at Discharge Functional status at discharge: independent ambulation Overall status at discharge: patient is progressing back to baseline Time Spent with Patient Time attestation: Total time spent providing and/or coordinating discharge services: Time spent: Greater than 30 minutes Exam Const: General: comfortable, no acute distress, alert and awake Orientation/consciousness: patient oriented x3 Resp: Effort & Inspection: normal respiratory effort Auscultat
[2020-03-10] MEDS: MAGNESIUM HYDROXIDE SUSP 30 ML UDC PO (10:13)
== END 2020-03-10 14:40 | disposition home or self-care (01) ==
LOC: ANHSURGERY 15:53 → ANH2MED 15:53
PROVIDERS: Admitting Provider Surgery; PCP Family Medicine; Visit Provider Surgery
PROC: (CPT 47610; principal; 2020-03-08 12:00)
DX: K80.62 Calculus of gallbladder and bile duct with acute cholecystitis without obstruction (principal); K80.00 Calculus of gallbladder with acute cholecystitis without obstruction; Z98.84 Bariatric surgery status; E66.01 Morbid (severe) obesity due to excess calories; R17 Unspecified jaundice; G47.33 Obstructive sleep apnea (adult) (pediatric); I25.10 Atherosclerotic heart disease of native coronary artery without angina pectoris; I10 Essential (primary) hypertension; Z87.891 Personal history of nicotine dependence; Z68.41 Body mass index [BMI] 40.0-44.9, adult
CPT/HCPCS: 47610; 36415; 47531; 80048; 80053; 80076; 82150; 82248; 83690; 85025; 85027; 86850; 86900; 86901; 88304; 93005; A9270; C1713; C9803; G0378; J0330; J0690; J1100; J1170; J1650; J1885; J2250; J2270; J2370; J2405; J2704; J3010; J7030; J7120; Q9966; U0003

== ENCOUNTER 2020-03-19 17:07 | Emergency (ER) | payer BC, SELFPAY ==
[2020-03-19] VITALS (22 sets, daily range): BP systolic 84–143; BP diastolic 51–90; PULSE 85–90; RESP 16–18; TEMP 36.4; O2SAT 96–100
--- NOTE | ~2020-03-19 | CT_ITS ---
EXAMINATION: CTA chest PE abdomen pel DATE: 03/19/2020 19:51 INDICATION: Right upper back pain post cholecystectomy TECHNIQUE: Computed tomography (CT) pulmonary angiogram of the chest was performed with 100 mL Omnipa que-350 intravenous contrast. Additional 3D reconstructions utilizing coronal maximum intensity proje ction (MIP) were performed. CT of the abdomen and pelvis was performed with intravenous contrast util izing the same contrast bolus following a short delay. Automated exposure control and iterative recon struction technique were employed. The dose-length product was 2017.63 mGy-cm. COMPARISON: None FINDINGS: Chest: Excellent contrast opacification of the pulmonary arteries. There is moderate streak artifact from de nse contrast in the superior vena cava and right atrium. Mild scattered respiratory motion artifact. Together this mildly decreases sensitivity in some of the smaller subsegmental pulmonary arteries. No pulmonary embolism identified. Lung volumes are small with atelectasis most prominent on the diaphra gm in the lingula and right middle lobe and to lesser degree in the dependent lower lobes. No pneumon ia, pulmonary edema, pleural effusion or pneumothorax. Heart size is normal. No pericardial effusion. Atherosclerotic coronary artery calcification. Thoracic aorta is normal in caliber with no dissectio n. No pathologically enlarged thoracic lymphadenopathy. Lower thoracic levoscoliosis with mild spondy losis. Abdomen/pelvis: Stopper changes of prior gastric bypass procedure. Additional postoperative change of a more recent c holecystectomy with surgical drain extending from the gallbladder fossa to the right lower quadrant w ith small amount of surrounding inflammatory stranding and minimal free fluid. There is also a T-tube drain expected position extending along the common bile duct and draining to the anteromedial right upper quadrant. Liver is normal with no intrahepatic biliary ductal dilation. There is likely reactiv e mild edematous wall thickening at the adjacent hepatic flexure of the colon. 4.1 cm low-attenuation left adrenal adenoma. There are some fatty infiltration of the pancreas which is otherwise normal. S pleen, right adrenal gland and bilateral kidneys are normal. Normal appendix. No bowel obstruction. B ladder, uterus and bilateral adnexa are unremarkable. Aside from the minimal amount of fluid along th e surgical drain there is no other evident free intraperineal gas or fluid. No abscess. No pathologic ally enlarged abdominal or pelvic lymphadenopathy. Mild lumbar spondylosis. IMPRESSION: 1. Moderate bibasilar atelectasis. No pulmonary embolism or other acute cardiopulmonary disease. 2. Postoperative changes of recent cholecystectomy with T-tube drain and second surgical drain at the gallbladder fossa. No abscess or discrete biloma. 3. Mild likely reactive edematous wall thickening at the adjacent hepatic flexure of the colon. Reviewed, dictated and finalized at location A. EWATER ANALYST LAB ANALYST IMPRESSION: 1. Moderate bibasilar atelectasis. No pulmonary embolism or other acute cardiop ulmonary disease. 2. Postoperative changes of recent cholecystectomy with T-tube drain and second surgical drain at the gallbladder fossa. No abscess or discrete biloma. 3. Mild likely reactive edematous wall thickening at the adjacent hepatic flexu re of the colon.
--- NOTE | ~2020-03-19 | XR_ITS ---
EXAMINATION: XR chest 1V portable DATE: 03/19/2020 18:54 INDICATION: Choking breathing. Abdominal pain post surgery. TECHNIQUE: frontal view of the chest was obtained. COMPARISON: None FINDINGS: Airspace opacities at the right lung base which partially silhouettes the elevated right hemidiaphrag m. Minimal streaky atelectasis at the lingula along side a small left paracardial fat pad. No pulmona ry edema, pleural effusion or pneumothorax. The cardiomediastinal silhouette is within normal limits for AP technique. IMPRESSION: 1. Opacities at the lung bases, right greater than left which could represent atelectasis and/or pneu monia. Reviewed, dictated and finalized at location A. ER TRIMMER OPERATOR IMPRESSION: 1. Opacities at the lung bases, right greater than left which could represent a telectasis and/or pneumonia.
--- NOTE | 2020-03-19 17:51 | PC.NURSE ---
sitting on stretcher. family member in room. SL inserted. labs drawn and sent. on BP and O2 monitors. call light in reach. waiting for further orders from provider. patient updated.
[2020-03-19 17:53] LABS: Basophils Absolute Auto 0.1 K/mm3 (0.0-0.1); Basophils Percent Auto 0.4 % (0.2-1.2); Eosinophils Absolute Auto 0.1 K/mm3 (0-0.3); Hematocrit 34.4 % (37.0-47.0); Hemoglobin 11.6 g/dL (12.0-15.0); Immature Granulocyte Percent A 0.8 % (0-0.5); Lymphocytes Absolute Auto 1.49 K/mm3 (0.9-3.2); Lymphocytes Percent Auto 11.4 % (18.3-44.2); Mean Corpuscular HGB Conc 33.7 g/dl (32-36); Mean Corpuscular Hemoglobin 33.8 pg (26-34); Mean Corpuscular Volume 100.3 fl (80-100); Monocytes Percent Auto 7.3 % (2.6-8.5); Neutrophils Absolute Auto 10.3 K/mm3 (1.3-6.7); Neutrophils Percent Auto 79.1 % (45.5-73.1); Platelet Count Result 608 k/mm3 (150-375); Red Blood Count 3.43 M/mm3 (4.2-5.4); Red Cell Distribution Width 15.6 % (11.5-14.5)
[2020-03-19 18:01] LABS: INR 0.9
[2020-03-19 18:02] LABS: Partial Thromboplastin Time 36.5 SECONDS (22.3-36.8)
[2020-03-19 18:05] LABS: Alanine Aminotransferase 67 U/L (4-35); Albumin Level 4.3 g/dL (3.5-5.1); Alkaline Phosphatase 394 U/L (38-126); Anion Gap 6 mmol/L (8-16); Aspartate Amino Transferase 42 U/L (14-36); Bilirubin,Total 1.6 mg/dL (0.2-1.3); Blood Urea Nitrogen 44 mg/dL (7-17); Calcium 9.7 mg/dL (8.4-10.2); Carbon Dioxide 26 mmol/L (22-30); Chloride 104 mmol/L (98-107); Estimated CRCL calculation 58 ml/min; Estimated Glomerular Filt Rate 47; Glucose 120 mg/dL (65-105); Lipase 91 U/L (23-300); Potassium 4.6 mmol/L (3.4-5.0); Sodium 136 mmol/L (137-145)
--- NOTE | 2020-03-19 18:11 | ED.ABDPAIN ---
HPI - Abdominal Pain General Chief Complaint: Abdominal Pain Stated Complaint: RUQ ABD/SIDE PAIN, HX OPEN TIKI Time Seen by Provider: 03/19/20 17:52 Source: patient Mode of arrival: ambulatory Limitations: no limitations History of Present Illness HPI narrative: This patient is 54 year old female who presents for evaluation right abdominal pain and right back pain s/p open cholecystectomy with CBD exploration 03/08/20. She reports she was evaluated by Dr. Villalta on 03/17/20. She states during that vision one of her drains was clamped. She reports since that has occurred, she has developed worsening pain to right upper quadrant and right mid to upper back. She reports she is having difficulty taking a full breath and using the incentive spirometer .She has having to take pain medication for the first time today. She still has one drain in place that seems to be draining more. She also reports the color of fluid is changing. She reports the color has changed from blood to dark green. She denies nausea, vomiting, fever or chills. Related Data Home Medications Medication Instructions Recorded Confirmed buspirone 10 mg tablet 10 mg PO BID 01/19/20 03/17/20 Adult One Daily Multivitamin 1 tablet PO DAILY 03/01/20 03/17/20 Allergies Allergy/AdvReac Type Severity Reaction Status Date / Time Sulfa (Sulfonamide Allergy Severe Swelling Verified 03/17/20 09:15 Antibiotics) erythromycin base AdvReac Intermediate Abdominal Verified 03/17/20 09:15 Pain Review of Systems Review of Systems: All systems reviewed & are unremarkable except as noted in HPI and below Constitutional: Constitutional: Denies chills and Denies fever(s) Cardiovascular: Cardiovascular: Denies chest pain Respiratory: Respiratory: Denies cough and Denies dyspnea Gastrointestinal: Gastrointestinal: Reports abdominal pain, Denies diarrhea, Denies nausea and Denies vomiting Musculoskeletal: Musculoskeletal: Reports back pain [facility] Past Medical History Medical History CAD (coronary artery disease) Depression High cholesterol HTN (hypertension) RON (obstructive sleep apnea) Thyroid disease Surgical History Surgical History Gastric bypass status for obesity History of thyroid surgery Hx laparoscopic cholecystectomy Family History Family History Father Hypertension Acute myocardial infarction Heart attack Mother Asthma, Onset Age: 50 History of blood clots Social History Social History Alcohol intake: never Substance use: never Substance use type: does not use 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 Gender identity (if verbalized by the patient): Female Spiritual care concerns: No Exam Const: General: no acute distress and alert Orientation/consciousness: patient oriented x3 HENMT: Head: normocephalic and atraumatic Face and sinus: face symmetric Throat: posterior oropharynx normal, tonsils normal and uvula midline Eyes: Pupils: Equal, round and reactive pupils present EOM: EOMs intact bilaterally Chest: Chest palpation & inspection: normal inspection of the chest Resp: Effort & Inspection: normal respiratory effort and no retractions Auscultation: clear to auscultation bilaterally Cardio: Rate: regular rate Rhythm: regular rhythm Heart sounds: no murmurs GI: Inspection: distended GI Palp: Yes Soft to palpation, No Tenderness to palpation present (GI) and No Guarding due to palpation present (GI) Auscultation: normal bowel sounds Other: she has [address], one attach to surgical bulb with dark green fluid , and large bag with very little fluid Back/Spine/Pelvis: Back: no CVA tenderness Skin: General skin exam: normal color Rashe
[2020-03-19] MEDS: SODIUM CHLORIDE 0.9% IV 1,000 ML 999 ML IV CONT (18:35)
--- NOTE | 2020-03-19 19:07 | PC.NURSE ---
has IVF going. resting on stretcher. family member in room. waiting for all tests to be resulted. on BP and O2 monitors. call light in reach. denies needs at this time.
--- NOTE | 2020-03-19 19:30 | PC.NURSE ---
patient in CT
[2020-03-19 21:33] LABS: Add Urine Microscopic? NO; Appearance Urine Clear (Clear); Bilirubin Urine Negative (Negative); Blood Urine Negative (Negative); Color Urine Yellow (Yellow); Glucose Urine UA Negative (Negative); Ketones Urine Negative (Negative); Leukocyte Esterase Ur Negative LEU/UL (Negative); Nitrate Urine Negative (Negative); Protein Urine Negative (Negative); Urobilinogen Urine Negative mg/dL (<2.0)
[2020-03-19 21:51] LABS: Specific Grav Ur 1.031 (1.001-1.035)
== END 2020-03-19 21:16 | disposition home or self-care (01) ==
PROVIDERS: Emergency Medicine; Emergency Provider General Practice; PCP Family Medicine
DX: G89.18 Other acute postprocedural pain (principal); R10.11 Right upper quadrant pain; E86.0 Dehydration; R74.01 Elevation of levels of liver transaminase levels; I25.10 Atherosclerotic heart disease of native coronary artery without angina pectoris; F32.9 Major depressive disorder, single episode, unspecified; I10 Essential (primary) hypertension; G47.33 Obstructive sleep apnea (adult) (pediatric); E07.9 Disorder of thyroid, unspecified; E78.00 Pure hypercholesterolemia, unspecified; Z98.84 Bariatric surgery status; R91.8 Other nonspecific abnormal finding of lung field
CPT/HCPCS: 36415; 71045; 71275; 74177; 80053; 81003; 83690; 85025; 85610; 85730; 96360; 99284; J7030; Q9967

== ENCOUNTER 2020-03-22 09:20 | Outpatient (CLI) | payer BC, SELFPAY ==
--- NOTE | ~2020-03-22 | XR_ITS ---
EXAMINATION: XR catheter cholangiogram DATE: 03/22/2020 10:18 INDICATION: Encounter for surgery aftercare following cholecystectomy. TECHNIQUE: A time-out was performed to verify the patient's name, date of , and procedure to b e performed. Bureau Chief fluoroscopic images were recorded. Initially the drainage catheter was clamped and sterilely prepped and a 21-gauge needle advanced into first the drainage catheter which was filled w ith yellowish bile. 20 mL of Omnipaque-240 contrast was injected and multiple fluoroscopic images obt ained. The catheter was clamped and subsequently the T-tube biliary drain was sterilely prepped and a ccessed with a 21-gauge needle. An additional 20 mL of Omnipaque 240 contrast was injected into the b iliary drain and additional fluoroscopic images obtained. There were no immediate complications. Fluo roscopy exposure time was 0.6 minutes. The total number of images was 27. FINDINGS: Initial contrast injection demonstrate a small fistulous tract communicating with the common bile daisy t which opacified with contrast which . Normal with no intraluminal filling defects to suggest choled ocholithiasis or stricture. There is prompt emptying into the duodenum. Small amount of contrast trac ked alongside the drainage catheter which to the skin surface with no evident biloma. A subsequent in jection again demonstrated retrograde filling of the normal-appearing biliary tree and common bile du ct with no filling defects or strictures. Again seen was a small amount of contrast indicating betwee n the common bile duct and the surgical drain. No extraluminal collection of contrast to suggest bilo ma. IMPRESSION: 1. T-tube biliary drain within a normal appearing common bile duct and biliary tree with no evident s tones or stricture. 2. Small common bile duct leak which tracks to the tip of the gallbladder drain which is at the gallb ladder fossa without discrete biloma. Reviewed, dictated and finalized at location A. AU DIRECTOR IMPRESSION: 1. T-tube biliary drain within a normal appearing common bile duct and biliary tree with no evident stones or stricture. 2. Small common bile duct leak which tracks to the tip of the gallbladder drain which is at the gallbladder fossa without discrete biloma.
== END 2020-03-22 09:21 | disposition home or self-care (01) ==
LOC: ANHIMG 09:22
PROVIDERS: PCP Family Medicine; Visit Provider Surgery
DX: K83.1 Obstruction of bile duct (principal); Z48.815 Encounter for surgical aftercare following surgery on the digestive system
CPT/HCPCS: 47531; Q9966

== ENCOUNTER 2020-04-01 22:49 | Emergency (ER) | payer BC, SELFPAY ==
[2020-04-01 22:54] VITALS: BP 149/75; PULSE 94; RESP 18; TEMP 36.8; O2SAT 99
--- NOTE | 2020-04-01 23:15 | ED.GENADULT ---
HPI - General Adult General Chief complaint: Wound/Laceration Stated complaint: drain site is infected Time Seen by Provider: 04/01/20 23:14 Source: patient Mode of arrival: ambulatory Limitations: no limitations History of Present Illness HPI narrative: Patient is 54 years old white female status post cholecystectomy March 08, 2020, was seen yesterday by her surgeon for follow-up and was told that everything WAS okay. Patient reports some redness around the drain for the last few days and she is telling me that her surgeon does not believe there is anything serious going on right now. Basically patient came to the emergency room for a second opinion Related Data Home Medications Medication Instructions Recorded Confirmed buspirone 10 mg tablet 10 mg PO BID 01/19/20 03/31/20 Adult One Daily Multivitamin 1 tablet PO DAILY 03/01/20 03/31/20 Allergies Allergy/AdvReac Type Severity Reaction Status Date / Time Sulfa (Sulfonamide Allergy Severe Swelling Verified 03/31/20 10:37 Antibiotics) erythromycin base AdvReac Intermediate Abdominal Verified 03/31/20 10:37 Pain Review of Systems Review of Systems: Narrative: CONSTITUTIONAL: Denies fever, chills, or sweats. EYES: Denies visual changes, redness, or discharge. ENT: Denies rhinorrhea, congestion, sore throat, or otalgia. CARDIOVASCULAR: Denies chest pain, palpitations, or edema. RESPIRATORY: Denies cough or dyspnea. GASTROINTESTINAL: Denies abdominal pain, nausea, vomiting, or diarrhea. GENITOURINARY: Denies dysuria or hematuria. SKIN: Denies rash or itching. MUSCULOSKELETAL: Denies back pain, joint pain, or myalgia. NEUROLOGIC: Denies headache, numbness, or weakness. PSYCHIATRIC: Denies anxiety or depression. [facility] Past Medical History Medical History CAD (coronary artery disease) Depression High cholesterol HTN (hypertension) RON (obstructive sleep apnea) Thyroid disease Surgical History Surgical History Gastric bypass status for obesity History of cholecystectomy 03/08/20 Open cholecystectomy, Common duct exploration with placement of T-tube and T-tube cholangiogram History of thyroid surgery Family History Family History Father Hypertension Acute myocardial infarction Heart attack Mother Asthma, Onset Age: 50 History of blood clots Social History Social History Tobacco type: cigarettes Alcohol intake: never Substance use: never Substance use type: does not use 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 Musculoskeletal: Normal range of motion, nontender back Neurologic: Alert and oriented ?3 Course Course Emergency Course: Stable Consultations Consultation #1: Dr. Knapp Date: 04/01/20 Time: 23:32 Vital Signs Vital signs: Vital Signs Temperature 36.8 C 04/01/20 22:54 Pulse Rate 94 04/01/20 22:54 Respiratory Rate 18 04/01
== END 2020-04-01 23:37 | disposition home or self-care (01) ==
PROVIDERS: Emergency Provider Emergency Medicine; Family Provider Family Medicine; PCP Family Medicine
DX: Z48.01 Encounter for change or removal of surgical wound dressing (principal); I25.10 Atherosclerotic heart disease of native coronary artery without angina pectoris; E78.00 Pure hypercholesterolemia, unspecified; I10 Essential (primary) hypertension; G47.33 Obstructive sleep apnea (adult) (pediatric); E07.9 Disorder of thyroid, unspecified; Z98.84 Bariatric surgery status; F17.210 Nicotine dependence, cigarettes, uncomplicated
CPT/HCPCS: 99281

== ENCOUNTER 2020-04-05 09:31 | Outpatient (CLI) | payer BC, SELFPAY ==
--- NOTE | ~2020-04-05 | XR_ITS ---
EXAMINATION: XR catheter cholangiogram DATE: 04/05/2020 10:11 INDICATION: Encounter for surgical aftercare following surgery. TECHNIQUE: I unclamped the T-tube and injected Omnipaque 240. 5 fluoroscopic images of the right uppe r quadrant of the abdomen were obtained. Fluoroscopy exposure time was 0.3 minutes. I reclamped the T -tube. COMPARISON: Catheter cholangiogram 03/22/2020 FINDINGS: There is a T-tube in expected position. The common duct is normal in caliber. Contrast pass es to the duodenum. There is leakage of a small volume of contrast into the gallbladder fossa. A surg ical drain is noted. IMPRESSION: 1. T-tube in expected position with leakage of a small volume of contrast into the gallbladder fossa. Reviewed, dictated and finalized at location A. N UP PERSON
[2020-04-05 11:34] LABS: Basophils Percent Auto 0.7 % (0.2-1.2); Eosinophils Absolute Auto 0.3 K/mm3 (0-0.3); Eosinophils Percent Auto 4.9 % (0-4.4); Hematocrit 38.5 % (37.0-47.0); Hemoglobin 12.6 g/dL (12.0-15.0); Immature Granulocyte Absolute 0.04 K/mm3 (0.00-0.031); Immature Granulocyte Percent A 0.7 % (0-0.5); Lymphocytes Percent Auto 22.9 % (18.3-44.2); Mean Corpuscular HGB Conc 32.7 g/dl (32-36); Mean Corpuscular Hemoglobin 33.7 pg (26-34); Mean Corpuscular Volume 102.9 fl (80-100); Mean Platelet Volume 9.8 fl (7.4-10.4); Monocytes Absolute Auto 0.5 K/mm3 (0.1-0.6); Monocytes Percent Auto 8.8 % (2.6-8.5); Neutrophils Absolute Auto 3.5 K/mm3 (1.3-6.7); Platelet Count Result 339 k/mm3 (150-375); Red Blood Count 3.74 M/mm3 (4.2-5.4); White Blood Count 5.7 K/mm3 (4.5-10.0)
[2020-04-05 11:37] LABS: Add Urine Microscopic? YES; Appearance Urine Clear (Clear); Bacteria Urine Trace /hpf; Bilirubin Urine Negative (Negative); Blood Urine Negative (Negative); Color Urine Yellow (Yellow); Glucose Urine UA Negative (Negative); Ketones Urine Negative (Negative); Leukocyte Esterase Ur Negative LEU/UL (Negative); Mucus Urine Rare /lpf; Nitrate Urine Negative (Negative); Protein Urine Negative (Negative); RBC Urine 0-2 /hpf (0-2); Specific Grav Ur 1.015 (1.001-1.035); Squamous Epithelial Cell Urine Occasional /hpf (Few); Urobilinogen Urine Negative mg/dL (<2.0); WBC Urine 0-3 /hpf
[2020-04-05 11:51] LABS: Alanine Aminotransferase 45 U/L (4-35); Alkaline Phosphatase 183 U/L (38-126); Anion Gap 2 mmol/L (8-16); Aspartate Amino Transferase 43 U/L (14-36); Bilirubin,Total 0.9 mg/dL (0.2-1.3); Blood Urea Nitrogen 17 mg/dL (7-17); Calcium 9.4 mg/dL (8.4-10.2); Carbon Dioxide 34 mmol/L (22-30); Chloride 103 mmol/L (98-107); Estimated Glomerular Filt Rate 52; Glucose 96 mg/dL (65-105); Potassium 4.2 mmol/L (3.4-5.0); Sodium 139 mmol/L (137-145)
== END 2020-04-05 09:32 | disposition home or self-care (01) ==
PROVIDERS: Family Provider Family Medicine; PCP Family Medicine; Visit Provider Surgery
DX: K80.00 Calculus of gallbladder with acute cholecystitis without obstruction (principal); K83.8 Other specified diseases of biliary tract; K91.89 Other postprocedural complications and disorders of digestive system; Z48.815 Encounter for surgical aftercare following surgery on the digestive system
CPT/HCPCS: 36415; 47531; 80053; 81001; 85025; Q9966

== ENCOUNTER 2020-04-29 07:45 | Outpatient (CLI) | payer BC, SELFPAY ==
--- NOTE | ~2020-04-29 | XR_ITS ---
CORRECTED REPORT corrected contrast amount [facility] 04/30/2020 EXAMINATION: XR catheter cholangiogram DATE: 04/29/2020 08:27 INDICATION: Encounter for surgical aftercare following surgery. TECHNIQUE: The existing T-tube biliary drain was clamped and injected with 20 mL Omnipaque 240. 9 fluoroscopic images of the right upper quadrant were obtained in varying obliquities during the injection. The amount of fluoroscopy time used during this procedure was 0.3 minutes. COMPARISON: 04/05/2020 and 03/22/2020 FINDINGS: Unchanged surgical drain at the gallbladder fossa. There is a T-tube in expected position. Common duct is normal in caliber with prompt passage of contrast into the duodenum. Incidentally noted is subsequent contrast filling of a duodenal diverticulum arising from the second portion of the duodenum. There is a small outpouching of contrast near where the tube inserts into the common bile duct at the site of the previously observed leak. There is no definitive extension of contrast to the adjacent surgical drain. What at the time of injection appeared to be a thin tract of contrast extending to the drainage catheter appears on review of the imaging to represent refluxed contrast within the superimposed biliary tree. IMPRESSION: 1. Residual small outpouching of contrast at the site of the prior leak occurring near the entrance of the catheter into the common bile duct. The outpouching however appears to remain contained with no definitive extension of contrast to the surgical drain. 2. Small diverticulum arising from the second portion of the exam which opacifies with contrast from the duodenum. Reviewed, dictated and finalized at location A. 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 Residual small outpouching of contrast at the site of the prior leak occurri ng near the entrance of the catheter into the common bile duct. The outpouching however appears to remain contained with no definitive extension of contrast t o the surgical drain. 2. Small diverticulum arising from the second portion of the exam which opacifi es with contrast from the duodenum.
== END 2020-04-29 07:46 | disposition home or self-care (01) ==
PROVIDERS: PCP Family Medicine; Visit Provider Surgery
DX: K80.00 Calculus of gallbladder with acute cholecystitis without obstruction (principal); Z48.815 Encounter for surgical aftercare following surgery on the digestive system; K57.10 Diverticulosis of small intestine without perforation or abscess without bleeding
CPT/HCPCS: 47531; Q9966

== ENCOUNTER 2020-05-07 11:08 | Outpatient (CLI) | payer BC, SELFPAY ==
[2020-05-07 11:25] LABS: Basophils Percent Auto 0.3 % (0.2-1.2); Eosinophils Absolute Auto 0.2 K/mm3 (0-0.3); Hemoglobin 12.2 g/dL (12.0-15.0); Immature Granulocyte Absolute 0.04 K/mm3 (0.00-0.031); Immature Granulocyte Percent A 0.5 % (0-0.5); Lymphocytes Absolute Auto 1.25 K/mm3 (0.9-3.2); Lymphocytes Percent Auto 15.8 % (18.3-44.2); Mean Corpuscular HGB Conc 32.1 g/dl (32-36); Mean Corpuscular Hemoglobin 32.9 pg (26-34); Mean Corpuscular Volume 102.4 fl (80-100); Mean Platelet Volume 10.3 fl (7.4-10.4); Monocytes Absolute Auto 0.7 K/mm3 (0.1-0.6); Monocytes Percent Auto 8.2 % (2.6-8.5); Neutrophils Absolute Auto 5.8 K/mm3 (1.3-6.7); Neutrophils Percent Auto 73.2 % (45.5-73.1); Platelet Count Result 272 k/mm3 (150-375); Red Blood Count 3.71 M/mm3 (4.2-5.4); Red Cell Distribution Width 12.4 % (11.5-14.5); White Blood Count 7.9 K/mm3 (4.5-10.0)
[2020-05-07 11:38] LABS: Alanine Aminotransferase 25 U/L (4-35); Albumin Level 3.5 g/dL (3.5-5.1); Alkaline Phosphatase 145 U/L (38-126); Anion Gap 3 mmol/L (8-16); Aspartate Amino Transferase 21 U/L (14-36); Bilirubin,Total 0.4 mg/dL (0.2-1.3); Blood Urea Nitrogen 21 mg/dL (7-17); Calcium 8.7 mg/dL (8.4-10.2); Carbon Dioxide 32 mmol/L (22-30); Chloride 103 mmol/L (98-107); Estimated Glomerular Filt Rate 58; Glucose 81 mg/dL (65-105); Lipase 20 U/L (23-300); Potassium 3.7 mmol/L (3.4-5.0); Sodium 138 mmol/L (137-145)
== END 2020-05-07 11:09 | disposition home or self-care (01) ==
PROVIDERS: PCP Family Medicine; Visit Provider Surgery
DX: K80.10 Calculus of gallbladder with chronic cholecystitis without obstruction (principal)
CPT/HCPCS: 36415; 80053; 83690; 85025

== ENCOUNTER → 2020-11-04 07:41 | Outpatient (CLI) | payer BC, SELFPAY ==
--- NOTE | ~2020-11-04 | US_ITS ---
EXAMINATION: US abdomen limited DATE: 11/04/2020 08:10 INDICATION: Abnormal levels of other serum enzymes TECHNIQUE: Multiple grayscale and Doppler ultrasound images of the abdomen were obtained. COMPARISON: 02/06/2020 FINDINGS: The pancreas is obscured by bowel gas. The liver is normal with normal echogenicity and ech otexture. No surface nodularity. Normal hepatopetal flow in the main portal vein. The gallbladder is surgically absent. The normal common bile duct measures 5 mm. IMPRESSION: 1. No sonographic correlate for the patient's symptoms. Reviewed, dictated and finalized at location A.
== END ==
PROVIDERS: PCP Family Medicine; Visit Provider Family Medicine
DX: R74.8 Abnormal levels of other serum enzymes (principal)
CPT/HCPCS: 76705

== ENCOUNTER → 2020-11-17 17:52 | Outpatient (CLI) | payer BC, SELFPAY ==
--- NOTE | ~2020-11-17 | MM_ITS ---
EXAMINATION: MM screening [facility] w [facility] HISTORY: Screening TECHNIQUE: Craniocaudal and mediolateral oblique 3-D tomosynthesis images were obtained and synthetic 2-D images were generated. CAD analysis was submitted and interpreted. COMPARISON: Comparison to multiple prior studies sequentially, with oldest reviewed study dated 12/03. BREAST PARENCHYMAL COMPOSITION: There are scattered areas of fibroglandular density. FINDINGS: There is no evidence of suspicious mass, calcification, or architectural distortion to sugg est malignancy in either breast. There has been no suspicious interval change. IMPRESSION: 1. No mammographic evidence of malignancy. 2. Recommend routine screening mammography in one year. BI-RADS Category 1: Negative Reviewed, dictated and finalized at location A.
== END ==
PROVIDERS: PCP Family Medicine; Visit Provider Family Medicine
DX: Z12.31 Encounter for screening mammogram for malignant neoplasm of breast (principal)
CPT/HCPCS: 77063; 77067

== ENCOUNTER → 2022-10-30 14:13 | Outpatient (CLI) | payer BC, SELFPAY ==
--- NOTE | ~2022-10-30 | CT_ITS ---
EXAMINATION:CT lung screening DATE: 10/30/2022 14:29 INDICATION: Encounter for screening for malignant neoplasm of lung. Smoker who quit 4 years ago with 30 pack year history. TECHNIQUE: Computed tomography (CT) of the chest was performed without intravenous contrast. Automate d exposure control and iterative reconstruction technique were employed. The dose-length product (DLP ) was 346.31 mGy-cm. COMPARISON: Chest CT 03/19/2020 FINDINGS: There is a worsened 5 mm nodule in right middle lobe. There is mild atelectasis bilaterally . There is a 3 mm nodule in right upper lobe. No pleural effusion. The heart size is normal. 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 No pericardial effusion. There are coronary artery c alcifications. There are surgical changes of the stomach. There are changes of cholecystectomy. There is a chronic 3.7 cm mass in left adrenal gland measuring low-attenuation, consistent with an adenoma . There is mild thoracic spondylosis. IMPRESSION: 1. Lung-RADS category 3: Probably benign. Further evaluation is recommended with noncontrast low-dose chest CT in 6 months. Reviewed, dictated and finalized at location E. IMPRESSION: 1. Lung-RADS category 3: Probably benign. Further evaluation is recommended wit h noncontrast low-dose chest CT in 6 months.
== END ==
PROVIDERS: PCP Family Medicine; Visit Provider Family Medicine
DX: Z12.2 Encounter for screening for malignant neoplasm of respiratory organs (principal); Z87.891 Personal history of nicotine dependence; R91.8 Other nonspecific abnormal finding of lung field
CPT/HCPCS: 71271

== ENCOUNTER 2023-02-06 09:08 | Outpatient (CLI) | payer BC, SELFPAY ==
--- NOTE | 2023-02-11 16:00 | WPDHOMESLEEP ---
Sleep Study - Home Unattended Date of Study: 02/06/23 Ordering Provider: Noemi Parekh DO Interpreting Provider: Noemi Parekh DO Home Sleep Study Type: Watch PAT Height: 1.65 m Weight: 113.398 kg Body Mass Index: 41.5 Neck Circumference (inches): 15 Avalon: 13 Reason for Sleep Study The patient had a Split night study on 04/29/2019 that showed an overall AHI of 16.8 with desaturation down to 87% in the diagnostic portion of the study. She was started on CPAP 5 cm H2O and titrated to CPAP 7 cm H2O with resolution of her sleep apnea. She had a PLMI of 86.8 in the diagnostic portion of the study and 44.4 in the titration portion of the study despite not having RLS symptoms. She was started on CPAP but the machine was taken away due to non-compliance. The patient is now interested in treating her sleep apnea but over 1 year has passed since her original sleep study. Not currently on treatment and has snoring with hypersomnia Sleep History The patient is a 57-year-old female with previously diagnosed RON that had a sleep study ordered so she could 3 qualify for PAP therapy. The patient rarely awakens from sleep short of breath. She occasionally awakens at night with heartburn, belching or cough. She constantly snores loudly enough that others complain. She occasionally has trouble sleeping when she has a cold. She denies waking up gasping for air throughout the night. She rarely has breathing problems at night observed by herself or others. She constantly sweats excessively at night. She denies having heart palpitations or irregular heartbeats during the night. She frequently falls asleep during the day but never while driving. She denies sleep paralysis and cataplexy. She rarely has trouble at school or work due to sleepiness. She rarely experiences vivid dreamlike scenes upon awakening or falling asleep. She denies feeling afraid of going to sleep. She denies having nightmares. She rarely remembers her dreams. He rarely has thoughts racing through her mind. She frequently feels sad, depressed and anxious. She occasionally has muscular tension. She rarely notices parts of her body jerk. She rarely kicks during the night. She rarely has crawling and aching feelings in her legs but frequently has leg pain during the night. She rarely grinds her teeth during sleep and rarely awakens with morning jaw pain. She is frequently bothered by pain during the day but rarely awakened by pain during the night. She frequently wakes up feeling stiff in the morning. She frequently wakes up with sore or achy muscles. She occasionally wakes up with pain in the neck, spine or other joints. She goes to bed at 9:00 p.m. on weekdays and at 10:00 p.m. on the weekends. She is able to fall asleep relatively quickly. She wakes up 3-4 times throughout the night to urinate and get a drink. She is able to fall back asleep relatively quickly. She wakes up at 4:30 a.m. on weekdays and between 5-6 a.m. on the weekends. She typically gets 6-7 hours of sleep per night. She currently lives with her 2 adult sons. She will consume caffeinated beverages within 2 hours of bedtime. She denies engaging in physical exercise before bedtime. She will watch television before falling asleep. She will take naps in afternoon or the evening. She will consume caffeinated beverages throughout the day. She will occasionally consume alcoholic beverages. She quit smoking cigarettes 4 years ago. She does use an unspecified recreational drugs. [facility]LY [facility] Past Medical History Medical History (Updated 02/11/23 @ 16:09 by Noemi Parekh DO) Abnormal stress test Cervical polyp Depression High cholesterol HTN (hypertension) Morbid obesity RON (obstructive sleep apnea) Surgical History Surgical History Gastric bypass status for obesity History of cholecystectomy 03/08/20 Open cholecystectomy, [facility]
[2023-02-11 16:06] VITALS: BMI 41.5
== END 2023-02-07 08:00 | disposition home or self-care (01) ==
LOC: ANHCSM 09:09
PROVIDERS: PCP Family Medicine; Visit Provider Family Medicine
DX: G47.33 Obstructive sleep apnea (adult) (pediatric) (principal); I10 Essential (primary) hypertension; E78.00 Pure hypercholesterolemia, unspecified; E66.01 Morbid (severe) obesity due to excess calories; Z68.41 Body mass index [BMI] 40.0-44.9, adult; Z87.891 Personal history of nicotine dependence
CPT/HCPCS: 95800

== ENCOUNTER 2023-02-13 07:54 | Outpatient (CLI) | payer BC, SELFPAY | END 2023-02-13 07:55 | disposition home or self-care (01) | LOC: ANHAUDIO 07:54 | PROVIDERS: PCP Family Medicine; Visit Provider Family Medicine | DX: H90.42 Sensorineural hearing loss, unilateral, left ear, with unrestricted hearing on the contralateral side (principal) | CPT/HCPCS: 92557; 92567 ==

== ENCOUNTER 2023-05-24 08:24 | Outpatient (CLI) | payer BC, SELFPAY ==
--- NOTE | ~2023-05-24 | CT_ITS ---
EXAMINATION: CT diagnostic chest wo con. No new or enlarging pulmonary mass lesion is noted. No pulmonary infiltrate or consolidation. Coronary artery calcifications. Mild thoracic aortic arch calcification. No thoracic aortic aneurysm. No hilar or mediastinal mass lesion or lymphadenopathy is detected. There is stable left adrenal wilner rivas. Status post cholecystectomy. Status post gastric bypass surgery. DATE: 05/24/2023 08:39 INDICATION: Lung nodules TECHNIQUE: Computed tomography (CT) of the chest was performed without intravenous contrast. Automate d exposure control and iterative reconstruction technique were employed. Exam dose: 372.05 mGy-cm to james exam DLP. COMPARISON: 10/30/2022 CT lung screening FINDINGS: Slightly diminished size of middle lobe nodule, currently measuring 6.2 mm compared to 6.5 mm by comparison . Some density measurements up to 279 Hounsfield units are obtained at the nodule, suggesting this is likely a calcified pulmonary granuloma. Stable 3 mm nodular density in the right upper lobe IMPRESSION: No significant change since 10/30/2022; no significant new or enlarging pulmonary mass elizabeth jerome Reviewed, dictated and finalized at Location A. Reviewed, dictated and finalized at location L. IMPRESSION: No significant change since 10/30/2022; no significant new or enlar ging pulmonary mass lesion
== END 2023-05-24 08:25 ==
LOC: GOSHIMG 08:25
PROVIDERS: PCP Family Medicine; Visit Provider Family Medicine
DX: R93.89 Abnormal findings on diagnostic imaging of other specified body structures (principal); R91.1 Solitary pulmonary nodule
CPT/HCPCS: 71250

== ENCOUNTER 2024-06-06 08:28 | Outpatient (CLI) | payer OTHER, SELFPAY ==
--- NOTE | ~2024-06-06 | CT_ITS ---
CT Scan of the Chest without Contrast: Clinical Indication: Lung cancer screening, nicotine dependence Technique: Contiguous sections were acquired throughout the chest without intravenous contrast. Dose reduction technique was used on this scan by utilizing automated exposure control and iterative recon struction technique. The dose-length product (DLP) was 243.26 mGy-cm. COMPARISON: 05/24/2023 Findings: There is no evidence of any significant mediastinal, hilar or axillary lymphadenopathy. Coronary carlos ry calcification is present. There is no evidence of pleural or pericardial effusion. Stable 5 mm right middle lobe pulmonary nodule present. Images through the upper abdomen reveal stable 3.4 cm left adrenal adenoma. There is evidence of prio r bariatric surgery. Impression: Lung RADS 2: Benign appearance. 12 month follow-up screening CT advised. Reviewed, dictated and finalized at [facility]. Impression: Lung RADS 2: Benign appearance. 12 month follow-up screening CT advised.
== END 2024-06-06 08:29 | disposition home or self-care (01) ==
LOC: GOSHIMG 08:28
PROVIDERS: PCP Family Medicine; Visit Provider Family Medicine
DX: Z12.2 Encounter for screening for malignant neoplasm of respiratory organs (principal); Z87.891 Personal history of nicotine dependence
CPT/HCPCS: 71271